=== PATIENT | male | born 1965 | race Asian ===

== ENCOUNTER → 2024-08-19 | Outpatient (CLI) | payer BC, SELFPAY ==
[2024-08-19 12:08] LABS: Basophils # (Auto) 0.1 Thou/mm3 (0.0-0.2); Basophils % (Auto) 1 % (0-2.5); Eosinophils # (Auto) 0.1 Thou/mm3 (0.0-0.5); Eosinophils % (Auto) 2 % (0-10); Hematocrit 35.7 % (41.0-53.0); Hemoglobin 10.7 g/dL (13.5-16.0); Immature Granulocytes % (Auto) 0 % (0-0); Immature Granulocytes Auto 0.03 Thou/mm3 (0.00-0.00); Lymphocytes # (Auto) 1.1 Thou/mm3 (1.0-4.8); Lymphocytes % (Auto) 16 % (10-50); Mean Corpuscular Hemoglobin 21.4 pg (25.0-35.0); Mean Corpuscular Volume 71 fL (80-100); Monocytes # (Auto) 0.5 Thou/mm3 (0.0-0.8); Monocytes % (Auto) 7 % (0-12); Neutrophils % (Auto) 74 % (37-80); Nucleated Red Blood Cell % 0 /100 WBC (0); Platelet Count 357 Thou/mm3 (140-440); RDW Standard Deviation 46.5 fL (35.1-43.9); Red Blood Count 5.01 Miln/mm3 (4.50-5.90); White Blood Count 6.8 Thou/mm3 (3.8-10.6)
[2024-08-19 12:44] LABS: Ferritin 219 ng/mL (10.5-307.3); Iron 14 mcg/dL (65-175); Total Iron Binding Capacity 172 mcg/dL (250-425)
[2024-08-19 12:46] LABS: Vitamin B12 404 pg/mL (211-911)
== END | disposition home or self-care (01) ==
PROVIDERS: PCP Family Medicine; Referring Provider Family Medicine; Visit Provider Family Medicine
DX: D64.9 Anemia, unspecified (principal)
CPT/HCPCS: 36415; 82607; 82728; 83540; 83550; 85025

== ENCOUNTER → 2025-01-13 | Outpatient (CLI) | payer BC, SELFPAY ==
[2025-01-13 13:07] LABS: Basophils # (Auto) 0.1 Thou/mm3 (0.0-0.2); Basophils % (Auto) 1 % (0-2.5); Eosinophils # (Auto) 0.1 Thou/mm3 (0.0-0.5); Eosinophils % (Auto) 1 % (0-10); Hematocrit 35.3 % (41.0-53.0); Hemoglobin 10.5 g/dL (13.5-16.0); Immature Granulocytes Auto 0.03 Thou/mm3 (0.00-0.00); Lymphocytes # (Auto) 1.0 Thou/mm3 (1.0-4.8); Lymphocytes % (Auto) 11 % (10-50); Mean Corpuscular HGB Conc 29.7 g/dl (31.0-37.0); Mean Corpuscular Hemoglobin 22.1 pg (25.0-35.0); Mean Corpuscular Volume 74 fL (80-100); Monocytes # (Auto) 0.4 Thou/mm3 (0.0-0.8); Monocytes % (Auto) 5 % (0-12); Neutrophils # (Auto) 7.4 Thou/mm3 (1.8-7.7); Neutrophils % (Auto) 83 % (37-80); Nucleated Red Blood Cell # 0.00 Thou/mm3 (0.00-0.00); Nucleated Red Blood Cell % 0 /100 WBC (0); Platelet Count 361 Thou/mm3 (140-440); RDW Standard Deviation 46.2 fL (35.1-43.9); Red Blood Count 4.76 Miln/mm3 (4.50-5.90); White Blood Count 8.9 Thou/mm3 (3.8-10.6)
[2025-01-13 13:25] LABS: Iron 17 mcg/dL (65-175); Percent Iron Saturation 9 % (20-55); Total Iron Binding Capacity 171 mcg/dL (250-425); Unsaturated Iron Binding 154 (225-295)
[2025-01-13 13:34] LABS: Vitamin B12 589 pg/mL (211-911)
[2025-01-13 13:38] LABS: Alanine Aminotransferase < 7 U/L (10-49); Albumin, Serum 3.2 gm/dL (3.5-5.0); Albumin/Globulin Ratio 0.5 (1.2-2.2); Alkaline Phosphatase 78 U/L (46-116); Anion Gap 8 (7-16); Aspartate Amino Transferase 10 U/L (0-34); BUN/Creatinine Ratio 11 Ratio (12-20); Bilirubin,Total 0.2 mg/dL (0.3-1.2); Blood Urea Nitrogen 11 mg/dL (9-23); Calcium 8.7 mg/dL (8.3-10.6); Calcium (Corrected) 9.3 mg/dL (8.5-10.1); Carbon Dioxide 27.9 mMol/L (20.0-31.0); Chloride 101 mMol/L (98-107); Creatinine (Component) 1.0 mg/dL (0.6-1.3); Globulin 6.7 gm/dL (2.3-3.5); Glucose 163 mg/dL (74-106); Osmolality,Calculated 277 (275-295); Potassium 3.9 mMol/L (3.4-5.1); Sodium 137 mMol/L (136-145); Total Protein 9.9 gm/dL (5.7-8.2); eGFR > 60 See Note
== END | disposition home or self-care (01) ==
LOC: COPL 12:10
PROVIDERS: PCP Family Medicine; Referring Provider Family Medicine; Visit Provider Family Medicine
DX: D50.9 Iron deficiency anemia, unspecified (principal)
CPT/HCPCS: 36415; 80053; 82607; 83540; 83550; 85025